=== PATIENT | female | born 1980 | race Caucasian/White ===

== ENCOUNTER 2017-02-26 15:34 | Emergency (ER) | payer OTHER ==
[~2017-02-26] VITALS: Ht 157.5 cm; Wt 54.4 kg
[2017-02-26 18:17] VITALS: BP 127/79
== END 2017-02-26 18:17 | disposition home or self-care (01) ==
LOC: ED 15:34
DX: M54.12 Radiculopathy, cervical region (principal); R51 Headache
CPT/HCPCS: J1100; J1885

== ENCOUNTER 2020-07-06 11:39 | Emergency (ER) | payer OTHER, MEDICAID | END 2020-07-06 12:10 | disposition left against medical advice (07) | LOC: ED 11:39 | DX: Z53.21 Procedure and treatment not carried out due to patient leaving prior to being seen by health care provider (principal) ==

== ENCOUNTER 2020-11-18 05:36 | Emergency (ER) | payer OTHER, MEDICAID | END 2020-11-18 05:54 | disposition left against medical advice (07) | LOC: ED 05:36 | DX: Z53.21 Procedure and treatment not carried out due to patient leaving prior to being seen by health care provider (principal) ==